=== PATIENT | female | born 2000 | race African-American/Black ===

== ENCOUNTER 2018-12-03 14:52 | Emergency (ER) | payer OTHER ==
--- NOTE | 2018-12-03 14:59 | EDPHY ---
H & P Time Seen by Provider: 12/03/18 14:58 Constitutional: Initial Vital Signs Temperature (C) 36.8 C 12/03/18 14:56 Heart Rate 115 H 12/03/18 14:56 Respiratory Rate 16 12/03/18 14:56 Blood Pressure 136/96 H 12/03/18 14:56 O2 Sat (%) 100 12/03/18 14:56 O2 Delivery Mode Room Air Allergies/Adverse Reactions: No Known Allergies Allergy (Unverified 12/03/18 14:55) Home Medications: Medication Instructions Recorded Amitriptyline HCl 12/03/18 Protonix 12/03/18 Zoloft 25mg (*) 12/03/18 Medical Decision Making ED Course/Re-evaluation: CHIEF COMPLAINT: Psychiatric evaluation HISTORY OF PRESENT ILLNESS: The patient is a 18 y/o female with a history of depression arriving via EMS with [employer] [place] for suicidal ideations. She states she is not feeling good about school. She felt suicidal earlier today. She is taking Zoloft as prescribed, by her PCP in [facility], but thinks the dosage needs to increase as it has not changed in years. She does have family near-by. No fever, headache , body aches, lightheadedness, chest pain, heart palpitations, shortness of breath, cough, abdominal pain, urinary or bowel complaints, numbness, paresthesias. REVIEW OF SYSTEMS: A comprehensive 10 system review of systems is otherwise negative aside from elements mentioned in the history of present illness and medical decision making. PHYSICAL EXAM: General Appearance: Alert, well hydrated, appropriate, and non-toxic appearing. Head: Atraumatic without scalp tenderness or obvious injury Eyes: Pupils equal, round, reactive to light and accommodation, EOMI, no trauma , no injection. Ears: Clear bilaterally, no perforation, normal landmarks Nose: Atraumatic, no rhinorrhea, clear. Throat: There is no erythema or exudates, no lesions, normal tonsils, mucus membranes moist. Neck: Supple, 2+ carotid upstroke, nontender, no lymphadenopathy. Respiratory: No retractions, no distress, no wheezes, and no accessory muscle use. Lungs are clear to auscultation bilaterally. Cardiovascular: Regular rate and rhythm, no murmurs, rubs, or gallops. Bilateral carotid, radial, dorsalis pedis, and posterior tibial pulses intact. Good capillary refill all extremities. Gastrointestinal: Abdomen is soft, nontender, non-distended, no masses, no rebound, no guarding, no peritoneal signs. Musculoskeletal: Normal active ROM of all extremities, atraumatic. Neurological: Alert, appropriate, and interactive. The patient has normal DTRs and non-focal cranial nerves, motor, sensory, and cerebellar exam. Skin: No rashes, good turgor, no nodules on palpation. Psych: Suicidal depression this morning. No homicidal ideations. No hallucinations. Past medical history: Depression Past surgical history: Denies Family history: Denies Social history: Single, lives in [place], student DIFFERENTIAL DIAGNOSIS: The differential diagnosis for the patient's depression included but was not limited to functional and major depression, situational depression, medication side effect, drugs, and alcohol abuse. MEDICAL DECISION MAKING: The patient is a 18 y/o female with a history of depression (on Zoloft) arriving via EMS with [place] [employer] for suicidal ideations. She states she is not feeling good about school. She felt suicidal earlier today but is no longer suicidal. Patient is in no acute distress and is hemodynamically stable. We are awaiting psychiatric team's evaluation. Patient has known history of psychiatric disorders and is here for evaluation. 1750: I spoke with [facility] regarding the patient. She is safe to be sent home with resources for mental health. Patient will return home with her father. Return precautions provided; patient and her father are comfortable with this plan. - Data Points Laboratory Results: Laboratory Results 12/03/18 15:15 12/03/18 15:15 12/03/18 12/03/18 12/03/18 15:15 15:15 15:15 WBC 8.11 10^3/uL 10^3/uL (3.80-9.50) RBC 5.11 10^6/uL 10^6/uL (4.18-5.33) Hgb 15.1 g/dL g/dL (12.6-16.3) Hct 44.7 % % (38.0-47.0) MCV 87.5 fL fL (81.5-99.8) MCH 29.5 pg pg (27.9-34.1) MCHC 33.8 g/dL g/dL (32.4-36.7) RDW 12.1 % % (11.5-15.2) Plt Count 338 10^3/uL 10^3/uL (150-400) MPV 9.0 fL fL (8.7-11.7) Neut % (Auto) 56.3 % % (39.3-74.2) Lymph % (Auto) 31.1 % % (15.0-45.0) [place] % (Auto) 7.3 % % (4.5-13.0) Eos % (Auto) 4.6 % % (0.6-7.6) Baso % (Auto) 0.5 % % (0.3-1.7) Nucleat RBC Rel Count 0.0 % % (0.0-0.2) Absolute Neuts (auto) 4.57 10^3/uL 10^3/uL (1.70-6.50) Absolute Lymphs (auto) 2.52 10^3/uL 10^3/uL (1.00-3.00) Absolute Monos (auto) 0.59 10^3/uL 10^3/uL (0.30-0.80) Absolute Eos (auto) 0.37 10^3/uL 10^3/uL (0.03-0.40) Absolute Basos (auto) 0.04 10^3/uL 10^3/uL (0.02-0.10) Absolute Nucleated RBC 0.00 10^3/uL 10^3/uL (0-0.01) Immature Gran % 0.2 % % (0.0-1.1) Immature Gran # 0.02 10^3/uL 10^3/uL (0.00-0.10) Sodium 139 mEq/L mEq/L (135-145) Potassium 3.6 mEq/L mEq/L (3.5-5.2) Chloride 102 mEq/L mEq/L (97-110) Carbon Dioxide 27 mEq/l mEq/l (22-31) Anion Gap 10 mEq/L mEq/L (6-14) BUN 5 mg/dL L mg/dL (7-23) Creatinine 0.6 mg/dL mg/dL (0.6-1.0) Estimated GFR > 60 Glucose 106 mg/dL H mg/dL (70-100) Calcium 10.2 mg/dL mg/dL (8.5-10.4) Salicylates < 1.0 mg/dL L mg/dL (2.0-20.0) Urine Opiates Screen NEGATIVE (NEGATIVE) Acetaminophen < 10 mcg/mL L mcg/mL (10-30) Urine Barbiturates NEGATIVE (NEGATIVE) Ur Phencyclidine Scrn NEGATIVE (NEGATIVE) Ur Amphetamine Screen NEGATIVE (NEGATIVE) U Benzodiazepines Scrn NEGATIVE (NEGATIVE) Urine Cocaine Screen NEGATIVE (NEGATIVE) U Marijuana (THC) Screen NEGATIVE (NEGATIVE) Ethyl Alcohol < 10 mg/dL mg/dL (0-10) Departure - Departure Disposition: Home, Routine, Self-Care Clinical Impression: Suicidal ideation Condition: Good Instructions: Suicide Prevention (ED) Additional Instructions: 1. Follow-up with your mental health provider as directed. 2. Return to the ED for thoughts of self-harm, racing thoughts or other concerns. Referrals: [facility],. [Clinic] - As per Instructions Report Scribed for: Kartik Garza Report Scribed by: Linda Brown Date of Report: 12/03/18 Time of Report: 14:59
[2018-12-03 15:27] LABS: PLATELET COUNT 338 10^3/uL (150-400)
[2018-12-03 18:10] VITALS: BP 138/86
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
--- NOTE | 2018-12-03 20:24 | ASMTTCLDSP ---
TLC Discharge Disposition Disposition: Answers: Discharge If Answers: Yes DISCHARGED: Patient/family given suicide hotline info & SAMHSA brochure? Disposition Notes: Notes: In consultation with [facility] ED physician, Trav Garza MD, concurred that pt does not appear to meet 27-65 criteria requiring psychiatric hospitalization as pt does not appear to be an imminent risk of harm to self due to a mental illness condition. Discharge Concerns/Recommendations: Notes: Pt feels safe to go home, contracts for safety, and agrees to follow up with a local therapist and use crisis resources if she doesn't feel she can keep her self safe. Pt's father was present in the room and was very supportive and agreed to stay with the patient for the next 24 hours. Was patient given the Answers: Not applicable Inpatient Behavioral Health Prohibited Belongings List while in the ED? Date Signed: 12/03/2018 08:24 PM Electronically Signed By:Ajay Biswas
== END 2018-12-03 18:10 | disposition home or self-care (01) ==
DX: R45.851 Suicidal ideations (principal); F32.9 Major depressive disorder, single episode, unspecified
CPT/HCPCS: 80305; G0480